=== PATIENT | male | born 1955 ===

== ENCOUNTER 2021-02-01 11:08 | Emergency (ER) | payer SELFPAY ==
[~2021-02-01] VITALS: Ht 172.7 cm; Wt 146.0 kg
[2021-02-01 11:27] VITALS: BP 114/71
--- NOTE | 2021-02-01 13:27 | NUR ---
[employer] OPERATOR: PT SIGNED REQUEST FOR DISCHARGE FORM
== END 2021-02-01 13:30 | disposition left against medical advice (07) ==
LOC: ED 13:24
DX: M79.662 Pain in left lower leg (principal); Z53.21 Procedure and treatment not carried out due to patient leaving prior to being seen by health care provider